=== PATIENT | male | born 1965 | race Caucasian/White ===

== ENCOUNTER 2023-06-05 17:46 | Emergency (ER) | payer MEDICARE, SELFPAY ==
[2023-06-05] VITALS (50 sets, daily range): BP systolic 95–154; BP diastolic 56–125; PULSE 74–145; RESP 0–97; O2SAT 92–100
--- NOTE | 2023-06-05 17:30 | RT.EKG_ITS ---
APPROVED REPORT Exam: Resting ECG Reason for Exam: unresponsive Patient Location: E HR:83 bpm ECG Measurements Heart Rate 83 AXIS ND 153 P 47 QRSd 94 QRS 21 QT 345 T 25 QTc 407 Conclusion Sinus rhythm.. V-rate 60- [address] segment or T wave abnormalities to suggest occluisve NE
[2023-06-05 18:02] LABS: BE (Venous) -2 mmol/L (-2-3); HCO3 (Venous) 23 mmol/L (23-28); O2 Sat (Venous) 83 %; TCO2 (Venous) 21 mmol/L (24-29); pCO2 (Venous) 40 mmHg (41-51); pH (Venous) 7.37 (7.31-7.41); pO2 (Venous) 51 mmHg
[2023-06-05 18:04] LABS: Lactate 1.7 mmol/L (0.6-1.4)
[2023-06-05 18:05] LABS: HCT 38.2 % (40.0-50.0); HGB 13.3 g/dL (13.5-17.5); MCH 29.8 pg (27.0-33.0); MCHC 34.8 % (32.0-36.0); MCV 86 fL (80-95); MPV 12.5 fL (8.0-11.0); Platelet Count 147 10^3/uL (130-400); RBC 4.46 10^6/uL (4.36-5.78); RDW 15.9 % (11.8-14.1); RDW-SD 49.3 fL; WBC 17.83 10^3/uL (4.4-10.8)
--- NOTE | 2023-06-05 18:15 | DI.CT_ITS ---
Exam(s) CT HEAD WO EXAM: CT HEAD WO CLINICAL HISTORY: episode of unresponsiveness, altered mental status. TECHNIQUE: Imaging Protocol: Axial computed tomography images with coronal and sagittal reformatted images were created and reviewed COMPARISON: No exams were available for comparison FINDINGS: Ventricles and Extra axial spaces: Normal in size and morphology for the patient's age. Hemorrhage: None. Cerebral parenchyma: No evidence of acute infarct or mass. Midline shift: None. Brainstem/Cerebellum: Prominent cisterna magna. Calvarium: Normal. Visualized Paranasal sinuses/Mastoids: Clear. Soft Tissues: Unremarkable. IMPRESSION: No acute intracranial process. RADIATION DOSE DELIVERED: 860.76mGy.cm Total DLP DATA REPOSITORY: All CT scans at this facility are submitted to the National Radiology Data Registry (NRDR) Dose Index Registry (DIR) with the [employer] ([employer]). RADIATION OPTIMIZATION: All CT scans at this facility use at least one of these dose optimization te chniques: automated exposure control; mA and/or kV adjustment per patient size (includes targeted exa ms where dose is matched to clinical indication); or iterative reconstruction.
[2023-06-05 18:19] LABS: ALT 23 U/L (16-63); AST 37 U/L (15-37); Albumin 2.9 g/dL (3.4-5.0); Alkaline Phosphatase 91 U/L (46-116); Anion Gap 14.2 mmol/L (3-11); BUN 48 mg/dL (7-18); Bilirubin, Total 0.8 mg/dL (0.2-1.0); CO2 21.8 mmol/L (21.0-32.0); Calcium 8.8 mg/dL (8.5-10.1); Chloride 94 mmol/L (98-107); Estimated GFR 14.17 (mL/min/1.73m2); Glucose 146 mg/dL (74-106); Potassium 3.8 mmol/L (3.5-5.1); Sodium 130 mmol/L (136-145); Total Protein 7.3 g/dL (6.4-8.2)
[2023-06-05 18:21] LABS: CREATININE 4.5 mg/dL (0.70-1.30)
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
[2023-06-05 18:51] LABS: ESR 72 mm/hr (0-20)
--- NOTE | 2023-06-05 19:00 | DI.RAD_ITS ---
Exam(s) XR PORTABLE CHEST AP POST LINE EXAM: XR PORTABLE CHEST AP POST LINE CLINICAL HISTORY: post intubation, altered mental status, sepsis TECHNIQUE: 2D digital imaging was performed. COMPARISON: No exams were available for comparison FINDINGS: An endotracheal tube has been inserted with the tip beneath the level of clavicles. Monitoring lead overlies the chest. LUNGS: Suboptimally inflated but clear. No pleural abnormality seen. HEART: Normal size. AORTA: Ectatic. BONES: Unremarkable for age. Soft tissues: Unremarkable. IMPRESSION: No acute findings. Satisfactory placement of endotracheal tube. DATA REPOSITORY: RADIATION DOSE DELIVERED:
[2023-06-05] MEDS: Etomidate 20 MG/10 ML VIAL 30 MG IVP (19:07)
[2023-06-05] MEDS: Rocuronium 50 MG/5 ML SYR 150 MG IVP (19:07)
[2023-06-05] MEDS: PROPOFOL 1,000 MG/100 ML BTL 21.402 MG IVPB (19:10)
[2023-06-05] MEDS: PIPERACILLIN/TAZO 4.5 GM in Normal Saline 100 ML IVPB (19:15)
[2023-06-05] MEDS: Normal Saline 1,000 ML 1000 ML IV (19:16)
[2023-06-05 19:27] LABS: Ammonia 11 umol/L (11-32); C-Reactive Protein 12.89 mg/dL (0.0-0.3)
--- NOTE | 2023-06-05 19:42 | NUR.NOTE ---
opened per HAYDEN sup report prepare for admit Nursing Note:
[2023-06-05 19:44] LABS: Bilirubin Negative (Negative); Blood Small (Negative); Clarity Cloudy (Clear); Glucose Negative (Negative); Ketones Negative (Negative); Leukocyte Esterase Moderate (Negative); Nitrite Negative (Negative); Specific Gravity 1.015 (1.005-1.025); Urobilinogen 0.2 mg/dL (Up to 0.2); pH 5.5 (5-8)
[2023-06-05] MEDS: levETIRAcetam 1,000 MG in Normal Saline 100 ML 400 MG IVPB (19:44)
--- NOTE | 2023-06-05 19:48 | DI.VRAD_ITS ---
PROCEDURE INFORMATION: Exam: XR Chest Exam date and time: 06/05/2023 7:18 PM Age: 58 years old Clinical indication: Device placement; Patient HX: Post intubation, altered mental status, sepsis TECHNIQUE: Imaging protocol: Radiologic exam of the chest. Views: 1 view. COMPARISON: No relevant prior studies available. FINDINGS: Tubes, catheters and devices: Endotracheal tube 7.6 cm above the kermit. Lungs: Unremarkable. No consolidation. Pleural spaces: Unremarkable. No pleural effusion. No pneumothorax. Heart/Mediastinum: Unremarkable. No cardiomegaly. Bones/joints: Unremarkable. IMPRESSION: Endotracheal tube 7.6 cm above the kermit. Dictated and Authenticated by: Crystal Mejia MD. Ordering:BRIEN Hoyt MD
[2023-06-05 19:51] LABS: Bacteria Moderate HPF (Negative); Crystals Negative HPF (Negative); Epithelial Cells Few HPF (Negative); WBC 20-50 HPF (0-5)
[2023-06-05 19:52] LABS: C & S Indicated? C&S Done As Ordered; Casts Negative LPF (Negative); Mucus Negative (Negative)
[2023-06-05] MEDS: LINEZOLID 600 MG/300 ML BAG 300 MG IVPB (20:09)
[2023-06-05] MEDS: Normal Saline 1,000 ML 125 ML IV (21:20)
[2023-06-05 21:40] LABS: Lactate 1.5 mmol/L (0.6-1.4)
--- NOTE | 2023-06-06 17:10 | NUR.NOTE ---
Nursing Note:in chart for transfer info for respiratory cord
== END 2023-06-05 22:24 | disposition short-term general hospital (02) ==
PROVIDERS: Emergency Provider Student in an Organized Health Care Education/Training Program
DX: R41.82 Altered mental status, unspecified (principal); R06.81 Apnea, not elsewhere classified; J96.00 Acute respiratory failure, unspecified whether with hypoxia or hypercapnia; N17.9 Acute kidney failure, unspecified; E87.1 Hypo-osmolality and hyponatremia; G82.50 Quadriplegia, unspecified; E11.9 Type 2 diabetes mellitus without complications; I10 Essential (primary) hypertension; Z79.82 Long term (current) use of aspirin; Z79.4 Long term (current) use of insulin; Z96.0 Presence of urogenital implants
CPT/HCPCS: 31500; 71045; 80053; 82805; 85027; 85652; 87040; 87077; 93005; 96365; 96366; 96367; 96368; 96375; 99291; 70450; 81003; 81015; 82140; 83605; 86140; 87086; 87186; 93010; J1450; J1953; J2020; J2543